=== PATIENT | female | born 1980 | race Caucasian/White ===

== ENCOUNTER 2022-08-28 10:45 | Emergency (ER) | payer MEDICARE ==
[2022-08-28 12:04] LABS: ESTIMATED GFR 94 mL/min (>60)
== END 2022-08-28 16:17 | disposition other institution (70) ==
LOC: JP.ED 10:45
DX: F20.0 Paranoid schizophrenia (principal); Z88.9 Allergy status to unspecified drugs, medicaments and biological substances; Z20.822 Contact with and (suspected) exposure to COVID-19
CPT/HCPCS: 36415; 80053; 80305; 81001; 85025; 99285; U0002; 99284

== ENCOUNTER 2024-11-26 21:29 | Emergency (ER) | payer MEDICARE | END 2024-11-26 23:42 | disposition home or self-care (01) | LOC: JP.ED 21:29 | DX: R09.89 Other specified symptoms and signs involving the circulatory and respiratory systems (principal); F06.4 Anxiety disorder due to known physiological condition; Z88.8 Allergy status to other drugs, medicaments and biological substances; Z79.899 Other long term (current) drug therapy | CPT/HCPCS: 99284 ==